=== PATIENT | female | born 2000 | race African-American/Black ===

== ENCOUNTER 2018-09-18 13:47 | Inpatient (IN) ==
[2018-09-18] MEDS ORDERED: ONDANSETRON 4 MG/2 ML VIAL IV PRN (14:18)
[2018-09-18] MEDS ORDERED: BUTORPHANOL 2 MG/ML VIAL IV PRN (14:18)
[2018-09-18] MEDS ORDERED: DINOPROSTONE VAG GEL 10 MG SYRINGE VAG ONE (14:20)
[2018-09-18 14:45] LABS: Basophils % 0.1 % (0.0-0.8); Eosinophils # 0.1 10*3/uL (0.0-0.87); Eosinophils % 1.5 % (0.00-10.9); Hematocrit 34.2 VOL% (35.7-47.0); Hemoglobin 10.6 GM/DL (12.0-16.0); Immature Granulocytes % 0.6 %; Immature Granulocytes Absolute 0.05 #; Lymphocytes # 3.2 10*3/uL (1.4-4.0); Lymphocytes % 36.9 % (21.3-54.2); Mean Corpuscular Volume 81.6 FL (87-102); Mean Platelet Volume 9.8 FL (9.6-12.0); Monocytes % 8.3 % (1.7-12.7); Neutrophils % 52.6 % (38.7-73.9); Platelet Count 280 T/CUMM (130-400); Red Blood Count 4.19 MC/CUMM (3.8-5.5); Red Cell Distribution Width 13.7 % (9.3-17.3); White Blood Count 8.8 T/CUMM (4-12)
[2018-09-18 14:58] LABS: Bilirubin,Total 0.6 MG/DL (0.2-1.0); Osmolality,Calculated 273.7 MOS/KG (273-304); Total Protein 6.9 G/DL (6.4-8.3)
[2018-09-18] MEDS: LACTATED RINGERS 1,000 ML IV SCH (15:57)
[2018-09-19] MEDS: LACTATED RINGERS 1,000 ML IV SCH ×2 (00:37→13:38)
[2018-09-19] MEDS ORDERED: OXYTOCIN/LR 20 UNIT/1,000 ML BAG IV SCH (02:00)
[2018-09-19] MEDS ORDERED: DINOPROSTONE VAG GEL 10 MG SYRINGE VAG ONE (08:03)
[2018-09-19] MEDS ORDERED: hydrOXYzine HCL 25 MG/1 ML VIAL IM PRN (14:33)
[2018-09-19] MEDS ORDERED: FAMOTIDINE 20 MG/2 ML VIAL IV ONE (14:33)
[2018-09-19] MEDS ORDERED: diphenhydrAMINE 50 MG/1 ML VIAL IV PRN ×2 (14:33)
[2018-09-19] MEDS ORDERED: ePHEDrine 50 MG/ML AMP IV PRN (14:33)
[2018-09-19] MEDS ORDERED: CITRIC ACID/SODIUM CITRATE 30 ML UDCUP PO ONE (14:33)
[2018-09-19] MEDS ORDERED: PROMETHAZINE 25 MG/1 ML VIAL IM ONE (14:33)
[2018-09-19] MEDS ORDERED: ceFAZolin 2,000 MG in PREMIX 1 EACH IV ONE (14:39)
[2018-09-19] MEDS ORDERED: OXYTOCIN 10 UNIT/ML VIAL IM ONE (15:02)
[2018-09-19] MEDS ORDERED: OXYTOCIN/LR 30 UNIT/1,000 ML BAG IV ONE (15:02)
[2018-09-19] MEDS ORDERED: KETOROLAC 60 MG/2 ML VIAL IM ONE (16:42)
[2018-09-19] MEDS ORDERED: BUPIVACAINE SPINAL 0.75% 2 ML AMP SPINAL ONE (16:42)
[2018-09-19] MEDS ORDERED: EPINEPHrine 1 MG/ML VIAL ONE (16:42)
[2018-09-19] MEDS ORDERED: MORPHINE 10 MG/10 ML VIAL ONE (16:42)
[2018-09-19] MEDS ORDERED: DEXAMETHASONE 4 MG/1 ML VIAL ONE (16:42)
[2018-09-19] MEDS ORDERED: fentaNYL 100 MCG/2 ML VIAL ONE (16:42)
[2018-09-19] MEDS ORDERED: BUPIVACAINE 0.5% 50 ML VIAL ONE (16:42)
[2018-09-19] MEDS ORDERED: PHENYLEPHRINE 1 MG/10 ML SYRINGE IV ONE ×2 (16:43→18:20)
[2018-09-19 17:42] LABS: Cord Venous Blood PCO2 44.7 MMHG; Cord Venous Blood PO2 25.6
[2018-09-19] MEDS ORDERED: RHO(D) IMMUNE GLOBULIN 300 MCG SYRINGE IM ONE (18:03)
[2018-09-19] MEDS ORDERED: SIMETHICONE CHEW 80 MG TABLET PO PRN (18:03)
[2018-09-19] MEDS ORDERED: ONDANSETRON 4 MG/2 ML VIAL IV PRN (18:03)
[2018-09-19] MEDS ORDERED: ACETAMINOPHEN 325 MG TABLET PO PRN (18:03)
[2018-09-19] MEDS ORDERED: IBUPROFEN 800 MG TABLET PO PRN (18:03)
[2018-09-19] MEDS ORDERED: OXYTOCIN/LR 20 UNIT/1,000 ML BAG IV ONE (18:03)
[2018-09-19] MEDS ORDERED: LACTATED RINGERS 1,000 ML IV SCH (18:30)
[2018-09-19] MEDS ORDERED: HYDROmorphone 2 MG/1 ML VIAL IV PRN (23:18)
[2018-09-19] MEDS: DOCUSATE SODIUM 100 MG CAPSULE PO SCH (23:20)
[2018-09-19] MEDS: KETOROLAC 30 MG/1 ML VIAL IV SCH (23:47)
[2018-09-20] MEDS: KETOROLAC 30 MG/1 ML VIAL IV SCH ×2 (05:24→13:06)
[2018-09-20 06:02] LABS: Basophils % 0.1 % (0.0-0.8); Hematocrit 30.2 VOL% (35.7-47.0); Hemoglobin 9.2 GM/DL (12.0-16.0); Immature Granulocytes % 0.7 %; Lymphocytes # 2.4 10*3/uL (1.4-4.0); Lymphocytes % 16.1 % (21.3-54.2); Mean Corpuscular HGB Conc 30.5 GM/DL (32-36); Mean Corpuscular Volume 82.5 FL (87-102); Mean Platelet Volume 9.9 FL (9.6-12.0); Monocytes % 5.1 % (1.7-12.7); Platelet Count 235 T/CUMM (130-400); Red Blood Count 3.66 MC/CUMM (3.8-5.5); Red Cell Distribution Width 13.6 % (9.3-17.3); White Blood Count 14.6 T/CUMM (4-12)
[2018-09-20] MEDS: MULTIVITAMIN (PRENATAL) TABLET PO SCH (10:02)
[2018-09-20] MEDS: MAGNESIUM HYDROXIDE SUSP 30 ML UDCUP PO PRN (10:07)
[2018-09-20] MEDS: FERROUS SULFATE 325 MG TABLET PO SCH (10:07)
[2018-09-20] MEDS: DOCUSATE SODIUM 100 MG CAPSULE PO SCH ×2 (10:07→21:37)
[2018-09-20] MEDS: METOCLOPRAMIDE 10 MG TABLET PO SCH (15:40)
[2018-09-21] MEDS: METOCLOPRAMIDE 10 MG TABLET PO SCH ×2 (00:09→07:38)
[2018-09-21 07:15] VITALS: BP 111/71
[2018-09-21] MEDS: MAGNESIUM HYDROXIDE SUSP 30 ML UDCUP PO PRN (07:38)
[2018-09-21] MEDS: FERROUS SULFATE 325 MG TABLET PO SCH (07:39)
[2018-09-21] MEDS: DOCUSATE SODIUM 100 MG CAPSULE PO SCH (07:40)
[2018-09-21] MEDS: MULTIVITAMIN (PRENATAL) TABLET PO SCH (09:05)
[2018-09-21] MEDS ORDERED: DIPH/TET/ACEL PERT BOOSTER VACCINE 0.5 ML VIAL IM ONE (10:34)
[2018-09-21] MEDS ORDERED: BISACODYL 10 MG SUPP RECTAL ONE (11:30)
== END 2018-09-21 12:40 | disposition home or self-care (01) | DRG 540 ==
LOC: N.LDOUT 13:47 → N.LD 13:50 → N.OB 09-19 21:50
PROVIDERS: ADMIT Obstetrics & Gynecology; ATTEND Obstetrics & Gynecology
PROC: LDCSECT (ICD-10-PCS; 2018-09-19 16:45)